=== PATIENT | female | born 1995 | race Caucasian/White ===

== ENCOUNTER 2021-06-21 09:46 | Observation (INO) ==
[2021-06-21 10:48] LABS: Basophils % 0.1 % (0.0-0.8); Hematocrit 33.5 VOL% (35.7-47.0); Hemoglobin 11.6 GM/DL (12.0-16.0); Immature Granulocytes % 0.6 %; Immature Granulocytes Absolute 0.07 #; Lymphocytes % 17.5 % (21.3-54.2); Mean Corpuscular HGB Conc 34.6 GM/DL (32-36); Monocytes % 5.9 % (1.7-12.7); Neutrophils % 75.9 % (38.7-73.9); Platelet Count 322 T/CUMM (130-400); Red Blood Count 3.49 MC/CUMM (3.8-5.5); Red Cell Distribution Width 13.5 % (9.3-17.3); White Blood Count 11.4 T/CUMM (4-12)
[2021-06-21] MEDS ORDERED: PROMETHAZINE INJ 25 MG in SODIUM CHLORIDE 0.9% 50 ML IV STA ×2 (10:49→13:12)
[2021-06-21] MEDS ORDERED: SODIUM CHLORIDE 0.9% 1,000 ML IV STA (10:49)
[2021-06-21] MEDS ORDERED: PROMETHAZINE 25 MG/1 ML VIAL ONE ×2 (10:51→12:08)
[2021-06-21 11:19] LABS: Albumin 3.2 G/DL (3.4-5.0); Bilirubin,Total 0.6 MG/DL (0.20-1.00); Calcium 9.4 MG/DL (8.5-10.1); Potassium 3.6 MMOL/L (3.5-5.1); Total Protein 7.7 G/DL (6.4-8.2)
[2021-06-21 13:10] LABS: Glucose,Urine (UA) Negative (Negative); Mucus,Urine Moderate /LPF (Occasional); Protein,Urine Negative; RBC,Urine 1 /HPF (0-4); Squamous Epithelial Cell,Urine Few /HPF (0-10); Urine Appearance Clear (Clear); Urine Color Yellow (Yellow); Urine Specific Gravity 1.026 (1.001-1.035)
[2021-06-21] MEDS ORDERED: ONDANSETRON 4 MG/2 ML VIAL ONE (13:10)
[2021-06-21 13:11] LABS: Bilirubin,Urine Negative (Negative); Blood, Urine Negative (Negative); Ketones,Urine 4+ mg/dL (Negative); Nitrite,Urine Negative (Negative); Urine Urobilinogen 0.2 EU/DL (<2.0)
[2021-06-21] MEDS ORDERED: ONDANSETRON 4 MG/2 ML VIAL IV STA (13:12)
[2021-06-21] MEDS ORDERED: SCOPOLAMINE 1.5 MG PATCH TRANSDERM ONE (13:38)
[2021-06-21] MEDS ORDERED: ACETAMINOPHEN 325 MG TABLET PO PRN (15:26)
[2021-06-21] MEDS ORDERED: GLUCAGON 1 MG VIAL IM PRN (18:19)
[2021-06-21] MEDS ORDERED: DEXTROSE 10% 250 ML BAG IV PRN (18:50)
[2021-06-21] MEDS: SODIUM CHLORIDE 0.9% 1,000 ML IV SCH (19:42)
[2021-06-21 21:13] LABS: Bacteria,Urine Occasional /HPF (Few); Mucus,Urine Occasional /LPF (Occasional); RBC,Urine 2 /HPF (0-4); Squamous Epithelial Cell,Urine Moderate /HPF (0-10)
[2021-06-21 21:14] LABS: Bilirubin,Urine Negative (Negative); Blood, Urine Negative (Negative); Glucose,Urine (UA) Negative (Negative); Ketones,Urine >160 mg/dL (Negative); Nitrite,Urine Negative (Negative); Protein,Urine Negative; Urine Appearance Clear (Clear); Urine Color Yellow (Yellow); Urine Specific Gravity > 1.030 (1.001-1.035); Urine Urobilinogen 0.2 EU/DL (<2.0)
[2021-06-21] MEDS: ONDANSETRON 4 MG/2 ML VIAL IV PRN (22:06)
[2021-06-21] MEDS ORDERED: ALUMINUM/MAGNES/SIMETH MAX STR 30 ML UDCUP PO PRN (23:33)
[2021-06-21] MEDS: PANTOPRAZOLE 40 MG VIAL IV SCH (23:35)
[2021-06-21] MEDS: DEXTROSE 5% NACL 0.45% 1,000 ML IV SCH (23:43)
[2021-06-21] MEDS: PROMETHAZINE 12.5 MG SUPP RECTAL PRN (23:44)
[2021-06-22] MEDS: SODIUM CHLORIDE 0.9% 1,000 ML IV SCH (02:27)
[2021-06-22] MEDS: PROMETHAZINE 12.5 MG SUPP RECTAL PRN (05:19)
[2021-06-22 06:07] LABS: Basophils % 0.2 % (0.0-0.8); Eosinophils % 0.1 % (0.00-10.9); Hematocrit 26.2 VOL% (35.7-47.0); Hemoglobin 9.1 GM/DL (12.0-16.0); Immature Granulocytes % 0.5 %; Immature Granulocytes Absolute 0.05 #; Lymphocytes # 2.3 10*3/uL (1.4-4.0); Lymphocytes % 24.5 % (21.3-54.2); Mean Corpuscular HGB Conc 34.7 GM/DL (32-36); Mean Corpuscular Volume 95.6 FL (87-102); Mean Platelet Volume 9.7 FL (9.6-12.0); Monocytes % 9.1 % (1.7-12.7); Neutrophils % 65.6 % (38.7-73.9); Platelet Count 260 T/CUMM (130-400); Red Blood Count 2.74 MC/CUMM (3.8-5.5); Red Cell Distribution Width 13.4 % (9.3-17.3); White Blood Count 9.3 T/CUMM (4-12)
[2021-06-22 06:27] LABS: Calcium 7.9 MG/DL (8.5-10.1); Osmolality,Calculated 273.7 MOS/KG (273-304); Potassium 3.3 MMOL/L (3.5-5.1); Risk Ratio 2.54; VLDL Cholesterol 15.4 MG/DL
[2021-06-22] MEDS: DEXTROSE 5% NACL 0.45% 1,000 ML IV SCH ×2 (07:28→18:04)
[2021-06-22] MEDS: ONDANSETRON 4 MG/2 ML VIAL IV PRN (08:09)
[2021-06-22] MEDS: PANTOPRAZOLE 40 MG VIAL IV SCH ×2 (09:14→21:21)
[2021-06-22] MEDS: METOCLOPRAMIDE 10 MG/2 ML VIAL IV SCH ×3 (09:20→21:19)
[2021-06-22] MEDS: POTASSIUM CHLORIDE RIDER 10 MEQ/100 ML PREMIX IV PRN ×4 (09:21→12:42)
[2021-06-22] MEDS ORDERED: POTASSIUM CHLORIDE 20 MEQ TABLET PO ONE (10:54)
[2021-06-22] MEDS ORDERED: DEXTROSE 50% 25 GM/50 ML VIAL IV PRN (15:41)
[2021-06-22] MEDS ORDERED: GLUCAGON 1 MG VIAL IM PRN (15:41)
[2021-06-22] MEDS: INSULIN REGULAR 100 UNIT/ML SUBCUT SCH ×2 (16:56→21:19)
[2021-06-23] MEDS: ONDANSETRON 4 MG/2 ML VIAL IV PRN (02:51)
[2021-06-23 05:31] LABS: Basophils % 0.2 % (0.0-0.8); Eosinophils % 0.2 % (0.00-10.9); Hematocrit 28.4 VOL% (35.7-47.0); Hemoglobin 9.7 GM/DL (12.0-16.0); Immature Granulocytes % 0.4 %; Immature Granulocytes Absolute 0.03 #; Lymphocytes # 2.5 10*3/uL (1.4-4.0); Lymphocytes % 29.8 % (21.3-54.2); Mean Corpuscular HGB Conc 34.2 GM/DL (32-36); Mean Corpuscular Volume 94.7 FL (87-102); Monocytes % 9.4 % (1.7-12.7); Platelet Count 250 T/CUMM (130-400); Red Cell Distribution Width 13.2 % (9.3-17.3); White Blood Count 8.3 T/CUMM (4-12)
[2021-06-23 05:41] LABS: Calcium 8.3 MG/DL (8.5-10.1); Osmolality,Calculated 265.1 MOS/KG (273-304); Potassium 3.2 MMOL/L (3.5-5.1)
[2021-06-23] MEDS: DEXTROSE 5% NACL 0.45% 1,000 ML IV SCH (07:17)
[2021-06-23] MEDS: INSULIN REGULAR 100 UNIT/ML SUBCUT SCH ×2 (08:16→12:22)
[2021-06-23] MEDS: METOCLOPRAMIDE 10 MG/2 ML VIAL IV SCH ×2 (09:12→14:20)
[2021-06-23] MEDS: PANTOPRAZOLE 40 MG VIAL IV SCH (09:13)
[2021-06-23 11:11] VITALS: BP 101/58
[2021-06-23] MEDS: POTASSIUM CHLORIDE RIDER 10 MEQ/100 ML PREMIX IV PRN ×4 (11:23→13:30)
[2021-06-23] MEDS ORDERED: POTASSIUM CHLORIDE 20 MEQ TABLET PO ONE (13:54)
== END 2021-06-23 15:20 | disposition home or self-care (01) ==
LOC: N.EDINP 09:46 → N.ED 09:46 → N.OB 16:30 → N.EDINP 16:35
PROVIDERS: ADMIT Obstetrics & Gynecology; ATTEND Obstetrics & Gynecology

== ENCOUNTER 2021-08-15 17:13 | Observation (INO) ==
[2021-08-15 17:53] LABS: Mucus,Urine Many /LPF (Occasional); Squamous Epithelial Cell,Urine Moderate /HPF (0-10)
[2021-08-15 17:55] LABS: Bilirubin,Urine Small mg/dL (Negative); Blood, Urine Negative (Negative); Glucose,Urine (UA) 100 mg/dL (Negative); Ketones,Urine >=160 mg/dL (Negative); Nitrite,Urine Negative (Negative); Protein,Urine 30 mg/dL (Negative); Urine Appearance Clear (Clear); Urine Color Dark Yellow (Yellow); Urine Specific Gravity 1.025 (1.001-1.035)
[2021-08-15 18:02] LABS: Barbiturates Screen,Urine Negative (Negative); Benzodiazepines Screen,Urine Negative (Negative); Cannabinoid Screen,Urine Positive (Negative); Opiate Screen,Urine Negative (Negative); Phencyclidine Screen,Urine Negative (Negative)
[2021-08-15] MEDS: LACTATED RINGERS 1,000 ML IV SCH ×2 (18:08→20:22)
[2021-08-15 18:09] LABS: Basophils % 0.1 % (0.0-0.8); Eosinophils % 0.2 % (0.00-10.9); Hematocrit 31.9 VOL% (35.7-47.0); Hemoglobin 10.7 GM/DL (12.0-16.0); Immature Granulocytes % 0.6 %; Immature Granulocytes Absolute 0.05 #; Lymphocytes # 1.9 10*3/uL (1.4-4.0); Lymphocytes % 22.2 % (21.3-54.2); Mean Corpuscular HGB Conc 33.5 GM/DL (32-36); Mean Corpuscular Volume 96.7 FL (87-102); Mean Platelet Volume 9.5 FL (9.6-12.0); Monocytes # 0.6 10*3/uL (0.11-0.8); Neutrophils % 69.9 % (38.7-73.9); Platelet Count 238 T/CUMM (130-400); Red Cell Distribution Width 12.5 % (9.3-17.3); White Blood Count 8.6 T/CUMM (4-12)
[2021-08-15] MEDS: ONDANSETRON 4 MG/2 ML VIAL IV PRN (18:12)
[2021-08-15 18:31] LABS: Albumin 2.7 G/DL (3.4-5.0); Bilirubin,Total 0.4 MG/DL (0.20-1.00); Calcium 8.8 MG/DL (8.5-10.1); Osmolality,Calculated 271.7 MOS/KG (273-304); Potassium 3.5 MMOL/L (3.5-5.1)
[2021-08-15] MEDS: PROMETHAZINE 25 MG/1 ML VIAL IM PRN (19:56)
[2021-08-15] MEDS: FAMOTIDINE 20 MG/2 ML VIAL IV SCH (20:18)
[2021-08-15] MEDS: ACETAMINOPHEN 500 MG TABLET PO PRN (22:00)
[2021-08-16] MEDS ORDERED: GLUCOSE GEL 15 GM TUBE PO ONE (00:28)
[2021-08-16] MEDS: LACTATED RINGERS 1,000 ML IV SCH ×3 (03:04→22:16)
[2021-08-16] MEDS: ONDANSETRON 4 MG/2 ML VIAL IV PRN ×2 (03:47→13:18)
[2021-08-16 05:58] LABS: Albumin 2.2 G/DL (3.4-5.0); Bilirubin,Total 0.4 MG/DL (0.20-1.00); Calcium 8.7 MG/DL (8.5-10.1); Osmolality,Calculated 268.8 MOS/KG (273-304); Potassium 3.6 MMOL/L (3.5-5.1); Total Protein 5.7 G/DL (6.4-8.2)
[2021-08-16] MEDS: FAMOTIDINE 20 MG/2 ML VIAL IV SCH ×2 (08:23→21:55)
[2021-08-16] MEDS ORDERED: GLUCAGON 1 MG VIAL IM PRN (15:40)
[2021-08-16] MEDS ORDERED: DEXTROSE 10% 250 ML BAG IV PRN (15:46)
[2021-08-16] MEDS: DOCUSATE SODIUM 100 MG CAPSULE PO PRN (21:55)
[2021-08-17] MEDS ORDERED: DEXTROSE 50% 25 GM/50 ML SYRINGE IV ONE (01:20)
[2021-08-17] MEDS: ONDANSETRON 4 MG/2 ML VIAL IV PRN ×2 (01:20→08:12)
[2021-08-17] MEDS ORDERED: DEXTROSE 50% 25 GM/50 ML VIAL IV ONE (01:30)
[2021-08-17] MEDS: INSULIN REGULAR 100 UNIT/ML SUBCUT SCH ×4 (01:40→18:00)
[2021-08-17] MEDS: PROMETHAZINE 25 MG/1 ML VIAL IM PRN (02:00)
[2021-08-17] MEDS ORDERED: DEXTROSE 50% 25 GM/50 ML VIAL IV PRN (02:06)
[2021-08-17] MEDS: LACTATED RINGERS 1,000 ML IV SCH ×3 (05:44→23:52)
[2021-08-17] MEDS ORDERED: DEXTROSE 5% LACTATED RINGERS 1,000 ML IV SCH (07:22)
[2021-08-17] MEDS ORDERED: BISACODYL 10 MG SUPP RECTAL PRN (08:04)
[2021-08-17] MEDS: FAMOTIDINE 20 MG/2 ML VIAL IV SCH ×2 (08:16→20:30)
[2021-08-17] MEDS ORDERED: SODIUM PHOSPHATE ENEMA 133 ML BOTTLE RECTAL ONE (08:36)
[2021-08-17] MEDS ORDERED: NIFEdipine 10 MG CAPSULE PO ONE (08:45)
[2021-08-17] MEDS: BETAMETH SODIUM PHOS/ACETATE 30 MG/5 ML VIAL IM SCH (08:50)
[2021-08-17] MEDS ORDERED: MINERAL OIL ENEMA 133 ML BOTTLE RECTAL ONE (09:00)
[2021-08-17] MEDS ORDERED: METOCLOPRAMIDE 10 MG/2 ML VIAL IV SCH (10:30)
[2021-08-17] MEDS ORDERED: NIFEdipine 10 MG CAPSULE PO SCH (12:00)
[2021-08-17 12:13] LABS: Albumin 2.6 G/DL (3.4-5.0); Bilirubin,Total 0.8 MG/DL (0.20-1.00); Calcium 8.9 MG/DL (8.5-10.1); Osmolality,Calculated 271.2 MOS/KG (273-304); Total Protein 6.7 G/DL (6.4-8.2)
[2021-08-17] MEDS: METOCLOPRAMIDE 10 MG/2 ML VIAL IV SCH ×2 (13:13→21:31)
[2021-08-17] MEDS: NIFEdipine 10 MG CAPSULE PO SCH (18:06)
[2021-08-18] MEDS: NIFEdipine 10 MG CAPSULE PO SCH ×2 (00:10→05:42)
[2021-08-18] MEDS: INSULIN REGULAR 100 UNIT/ML SUBCUT SCH ×2 (00:38→06:20)
[2021-08-18] MEDS: LACTATED RINGERS 1,000 ML IV SCH (02:15)
[2021-08-18] MEDS: METOCLOPRAMIDE 10 MG/2 ML VIAL IV SCH (05:13)
[2021-08-18] MEDS: ACETAMINOPHEN 500 MG TABLET PO PRN (05:43)
[2021-08-18] MEDS ORDERED: SODIUM PHOSPHATE ENEMA 133 ML BOTTLE RECTAL ONE (06:00)
[2021-08-18 08:09] VITALS: BP 97/59
[2021-08-18] MEDS: DOCUSATE SODIUM 100 MG CAPSULE PO PRN (09:38)
[2021-08-18] MEDS: FAMOTIDINE 20 MG/2 ML VIAL IV SCH (09:41)
[2021-08-18] MEDS: BETAMETH SODIUM PHOS/ACETATE 30 MG/5 ML VIAL IM SCH (09:43)
== END 2021-08-18 12:52 | disposition home or self-care (01) ==
LOC: N.LDOUT 17:13 → N.LD 17:13 → N.OB 17:13 → N.OBOUT 17:13 → N.LD 17:19 → N.OB 21:20 → N.LD 08-17 07:38 → N.OB 08-17 13:31
PROVIDERS: ADMIT Obstetrics & Gynecology; ATTEND Obstetrics & Gynecology

== ENCOUNTER 2021-10-05 06:02 | Inpatient (IN) ==
[2021-10-05] MEDS ORDERED: ONDANSETRON 4 MG/2 ML VIAL IV PRN ×2 (06:23→10:14)
[2021-10-05] MEDS ORDERED: miSOPROStoL 200 MCG TABLET RECTAL PRN (06:23)
[2021-10-05] MEDS ORDERED: OXYTOCIN/LR 20 UNIT/1,000 ML BAG IV ONE ×3 (06:23→10:14)
[2021-10-05] MEDS ORDERED: LACTATED RINGERS 250 ML IV ONE (06:23)
[2021-10-05] MEDS ORDERED: CARBOPROST TROMETHAMINE 250 MCG/ML AMP IM PRN (06:23)
[2021-10-05] MEDS ORDERED: TRANEXAMIC ACID 1,000 MG in SODIUM CHLORIDE 0.9% 100 ML IV PRN (06:23)
[2021-10-05] MEDS ORDERED: METHYLERGONOVINE 0.2 MG/1 ML AMP IM PRN (06:23)
[2021-10-05] MEDS ORDERED: LACTATED RINGERS 500 ML IV PRN (06:23)
[2021-10-05 07:05] LABS: Basophils % 0.1 % (0.0-0.8); Eosinophils # 0.1 10*3/uL (0.0-0.87); Eosinophils % 0.6 % (0.00-10.9); Hematocrit 31.2 VOL% (35.7-47.0); Hemoglobin 10.6 GM/DL (12.0-16.0); Immature Granulocytes % 0.3 %; Immature Granulocytes Absolute 0.03 #; Lymphocytes % 33.1 % (21.3-54.2); Mean Corpuscular Volume 89.9 FL (87-102); Mean Platelet Volume 10.9 FL (9.6-12.0); Monocytes # 0.7 10*3/uL (0.11-0.8); Neutrophils % 57.9 % (38.7-73.9); Platelet Count 220 T/CUMM (130-400); Red Blood Count 3.47 MC/CUMM (3.8-5.5); Red Cell Distribution Width 12.2 % (9.3-17.3); White Blood Count 9.1 T/CUMM (4-12)
[2021-10-05] MEDS ORDERED: CLINDAMYCIN INJ 900 MG/50 ML PREMIX IV SCH (07:30)
[2021-10-05] MEDS: LACTATED RINGERS 1,000 ML IV SCH ×2 (08:02→21:50)
[2021-10-05] MEDS ORDERED: TRANEXAMIC ACID 1,000 MG/10 ML VIAL ONE (09:07)
[2021-10-05] MEDS ORDERED: miSOPROStoL 200 MCG TABLET ONE (09:07)
[2021-10-05] MEDS ORDERED: FAMOTIDINE 20 MG/2 ML VIAL IV ONE (09:07)
[2021-10-05] MEDS ORDERED: CITRIC ACID/SODIUM CITRATE 30 ML UDCUP PO ONE (09:07)
[2021-10-05] MEDS ORDERED: CARBOPROST TROMETHAMINE 250 MCG/ML AMP IM ONE (09:08)
[2021-10-05] MEDS ORDERED: METHYLERGONOVINE 0.2 MG/1 ML AMP ONE (09:08)
[2021-10-05] MEDS ORDERED: SODIUM CHLORIDE 0.9% 0 ML IV ONE (09:08)
[2021-10-05] MEDS ORDERED: METOCLOPRAMIDE 10 MG/2 ML VIAL ONE (09:19)
[2021-10-05] MEDS ORDERED: ONDANSETRON 4 MG/2 ML VIAL ONE (09:19)
[2021-10-05] MEDS ORDERED: BUPIVACAINE SPINAL 0.75% 2 ML AMP SPINAL ONE (09:19)
[2021-10-05] MEDS ORDERED: buprenorphine HCL 0.3 MG/ML VIAL ONE (09:19)
[2021-10-05] MEDS ORDERED: MIDAZOLAM 2 MG/2 ML VIAL ONE (09:50)
[2021-10-05 10:00] LABS: Cord Arterial Blood HCO3 15.3 MMOL/L
[2021-10-05] MEDS ORDERED: LACTATED RINGERS 1,000 ML IV ONE (10:12)
[2021-10-05] MEDS ORDERED: ACETAMINOPHEN 325 MG TABLET PO PRN (10:14)
[2021-10-05] MEDS ORDERED: GLUCAGON 1 MG VIAL IM PRN (10:14)
[2021-10-05] MEDS ORDERED: RHO(D) IMMUNE GLOBULIN 300 MCG SYRINGE IM ONE (10:14)
[2021-10-05] MEDS ORDERED: DEXTROSE 10% 250 ML BAG IV PRN (10:32)
[2021-10-05] MEDS ORDERED: INSULIN LISPRO 100 UNIT/ML SUBCUT SCH ×2 (11:00)
[2021-10-05] MEDS: ACETAMINOPHEN 500 MG TABLET PO SCH ×3 (13:14→22:56)
[2021-10-05] MEDS: KETOROLAC 30 MG/1 ML VIAL IV SCH ×2 (15:54→22:57)
[2021-10-05] MEDS: CLINDAMYCIN INJ 900 MG/50 ML PREMIX IV SCH (16:02)
[2021-10-05] MEDS ORDERED: HydrOXYzine PAMOATE 25 MG CAPSULE PO PRN (17:45)
[2021-10-05] MEDS ORDERED: diphenhydrAMINE 50 MG/1 ML VIAL IV PRN (17:46)
[2021-10-05] MEDS ORDERED: AMPICILLIN/SULBACTAM 1,500 MG in SODIUM CHLORIDE 0.9% 100 ML IV SCH (18:30)
[2021-10-05 18:42] LABS: Basophils % 0.1 % (0.0-0.8); Eosinophils % 0.1 % (0.00-10.9); Hematocrit 25.9 VOL% (35.7-47.0); Hemoglobin 8.9 GM/DL (12.0-16.0); Immature Granulocytes % 0.6 %; Immature Granulocytes Absolute 0.06 #; Lymphocytes # 2.2 10*3/uL (1.4-4.0); Mean Corpuscular HGB Conc 34.4 GM/DL (32-36); Mean Corpuscular Volume 89.3 FL (87-102); Mean Platelet Volume 10.7 FL (9.6-12.0); Monocytes # 0.8 10*3/uL (0.11-0.8); Neutrophils % 70.2 % (38.7-73.9); Platelet Count 173 T/CUMM (130-400); Red Cell Distribution Width 12.1 % (9.3-17.3); White Blood Count 10.4 T/CUMM (4-12)
[2021-10-05] MEDS: DOCUSATE SODIUM 100 MG CAPSULE PO SCH (21:47)
[2021-10-06] MEDS: CLINDAMYCIN INJ 900 MG/50 ML PREMIX IV SCH (00:16)
[2021-10-06] MEDS: ACETAMINOPHEN 500 MG TABLET PO SCH ×3 (04:12→22:19)
[2021-10-06] MEDS: KETOROLAC 30 MG/1 ML VIAL IV SCH (04:14)
[2021-10-06 04:33] LABS: Basophils % 0.1 % (0.0-0.8); Eosinophils # 0.1 10*3/uL (0.0-0.87); Eosinophils % 0.6 % (0.00-10.9); Hematocrit 26.4 VOL% (35.7-47.0); Hemoglobin 8.8 GM/DL (12.0-16.0); Immature Granulocytes % 0.3 %; Immature Granulocytes Absolute 0.03 #; Lymphocytes # 2.7 10*3/uL (1.4-4.0); Lymphocytes % 24.7 % (21.3-54.2); Mean Corpuscular HGB Conc 33.3 GM/DL (32-36); Mean Platelet Volume 11.2 FL (9.6-12.0); Monocytes # 0.9 10*3/uL (0.11-0.8); Monocytes % 8.4 % (1.7-12.7); Neutrophils % 65.9 % (38.7-73.9); Platelet Count 190 T/CUMM (130-400); Red Cell Distribution Width 12.2 % (9.3-17.3); White Blood Count 10.9 T/CUMM (4-12)
[2021-10-06] MEDS: MAGNESIUM HYDROXIDE SUSP 30 ML UDCUP PO PRN ×2 (08:01→20:27)
[2021-10-06] MEDS: DOCUSATE SODIUM 100 MG CAPSULE PO SCH ×2 (08:01→20:26)
[2021-10-06] MEDS: MULTIVITAMIN (PRENATAL) TABLET PO SCH (08:01)
[2021-10-06] MEDS: IRON (CARBONYL)/VIT C/B12/FA TABLET PO SCH (08:01)
[2021-10-06] MEDS: oxyCODONE/ACETAMINOPHEN 5-325 MG TABLET PO PRN ×2 (12:21→20:27)
[2021-10-06] MEDS: SIMETHICONE CHEW 80 MG TABLET PO PRN (20:26)
[2021-10-06] MEDS: IBUPROFEN 800 MG TABLET PO PRN (20:27)
[2021-10-06] MEDS: LACTATED RINGERS 1,000 ML IV SCH ×3 (22:17→22:18)
[2021-10-07] MEDS: IBUPROFEN 800 MG TABLET PO PRN (06:20)
[2021-10-07] MEDS: oxyCODONE/ACETAMINOPHEN 5-325 MG TABLET PO PRN (06:20)
[2021-10-07] MEDS: DOCUSATE SODIUM 100 MG CAPSULE PO SCH ×2 (08:53→21:57)
[2021-10-07] MEDS: MULTIVITAMIN (PRENATAL) TABLET PO SCH (08:53)
[2021-10-07] MEDS: MAGNESIUM HYDROXIDE SUSP 30 ML UDCUP PO PRN (08:53)
[2021-10-07] MEDS: SIMETHICONE CHEW 80 MG TABLET PO PRN ×2 (08:53→21:57)
[2021-10-07] MEDS: IRON (CARBONYL)/VIT C/B12/FA TABLET PO SCH (13:25)
[2021-10-07] MEDS ORDERED: MAGNESIUM CITRATE 300 ML BOTTLE PO ONE (21:39)
[2021-10-08] MEDS: IBUPROFEN 800 MG TABLET PO PRN (04:35)
[2021-10-08] MEDS: MULTIVITAMIN (PRENATAL) TABLET PO SCH (09:55)
[2021-10-08] MEDS: DOCUSATE SODIUM 100 MG CAPSULE PO SCH (09:55)
[2021-10-08] MEDS: SIMETHICONE CHEW 80 MG TABLET PO PRN (09:55)
[2021-10-08] MEDS: IRON (CARBONYL)/VIT C/B12/FA TABLET PO SCH (09:55)
[2021-10-08 12:33] VITALS: BP 128/75
[2021-10-08] MEDS ORDERED: MEASLES/MUMPS/RUBELLA VACCINE 0.5 ML VIAL SUBCUT ONE (14:07)
== END 2021-10-08 14:45 | disposition home or self-care (01) | DRG 540 ==
LOC: N.LD 06:02 → N.OB 13:28
PROVIDERS: ADMIT Obstetrics & Gynecology; ATTEND Obstetrics & Gynecology
PROC: LDCSECT (ICD-10-PCS; 2021-10-05 08:00)